=== PATIENT | female | born 1990 ===

== ENCOUNTER 2020-09-04 12:30 | Inpatient (IN) | payer OTHER ==
[~2020-09-04] VITALS: Ht 154.9 cm; Wt 54.9 kg
[2020-09-10] MEDS ORDERED: PRENATAL TABLE1 EAC3 PO (13:01)
== END 2020-09-12 11:53 | disposition home or self-care (01) | DRG 805 ==
LOC: LDR 09-10 11:58 → OB/GYN 09-10 11:58 → LDR 09-10 12:55 → OB/GYN 09-10 21:36
PROVIDERS: ADMIT Obstetrics & Gynecology; ATTEND Obstetrics & Gynecology
PROC: 10E0XZZ Delivery of Products of Conception, External Approach (ICD-10-PCS; principal; 2020-09-10)
PROC: 4A1HXFZ Monitoring of Products of Conception, Cardiac Rhythm, External Approach (ICD-10-PCS; 2020-09-10)
DX: O98.52 Other viral diseases complicating childbirth (principal); U07.1 COVID-19; Z37.0 Single live birth; Z3A.38 38 weeks gestation of pregnancy

== ENCOUNTER → 2021-02-05 | Emergency (ER) | payer OTHER ==
[~2021-02-05] VITALS: Ht 154.9 cm; Wt 45.4 kg
[~2021-02-05] MED LIST: PRENATAL TABLE1 EAC3 PO
== END | disposition home or self-care (01) ==
LOC: ER 15:51
DX: R53.81 Other malaise (principal); R42 Dizziness and giddiness; R07.89 Other chest pain